=== PATIENT | female | born 1965 | race Caucasian/White ===

== ENCOUNTER 2020-04-27 23:25 | Emergency (ER) | payer OTHER ==
[2020-04-27 23:49] VITALS: BMI 30.9
[2020-04-28] MEDS ORDERED: SODIUM CHLORIDE 1,000 ML IV STA (00:25)
[2020-04-28] MEDS ORDERED: ACETAMINOPHEN 1000 MG/100 ML VIAL (NON FORMULARY) IVPB ONE (00:25)
[2020-04-28 00:54] LABS: BASO % 0.3 % (0-2.0); EOS % 0.5 % (0-4.5); HEMATOCRIT 41.6 % (32.4-45.2); HEMOGLOBIN 13.5 GM/dL (10.7-15.3); LYMPH % 23.4 % (8-40); MCH 26.3 pg (25.7-33.7); MCHC 32.4 g/dl (32.0-36.0); MEAN CELL VOLUME 81.2 fl (80-96); MEAN PLT VOLUME 8.8 fl (7.5-11.1); NEUT % 62.8 % (42.8-82.8); PLATELET COUNT 190 K/MM3 (134-434); RBC 5.12 M/mm3 (3.60-5.2)
[2020-04-28 00:55] VITALS: TEMP 98.8
[2020-04-28] MEDS ORDERED: ACETAMINOPHEN INJECTION 100 ML IVPB ONE (01:08)
[2020-04-28 01:12] LABS: INR 1.13 (0.83-1.09); PROTHROMBIN TIME (PATIENT) 13.9 SEC (9.7-13.0)
[2020-04-28 01:14] LABS: CHLORIDE 109 mmol/L (98-107); POTASSIUM 3.7 mmol/L (3.5-5.1); SODIUM 144 mmol/L (136-145)
[2020-04-28 01:15] LABS: ACTIVATED PTT 27.1 SECONDS (25.2-36.5)
[2020-04-28 01:17] LABS: ALBUMIN 3.1 g/dl (3.4-5.0); ANION GAP 6 MMOL/L (8-16); BLOOD UREA NITROGEN 11.8 mg/dL (7-18); CO2 29 mmol/L (21-32); GLUCOSE,RANDOM 92 mg/dL (74-106); MAGNESIUM 2.2 mg/dL (1.8-2.4)
[2020-04-28 01:18] LABS: LIPASE 178 U/L (73-393)
[2020-04-28 01:20] LABS: CREATININE 0.7 mg/dL (0.55-1.3); SGOT/AST 29 U/L (15-37); SGPT/ALT 29 U/L (13-61)
[2020-04-28 01:21] LABS: BILIRUBIN,TOTAL 0.4 mg/dL (0.2-1); LDH 283 U/L (84-246); TOT PROT 6.6 g/dl (6.4-8.2)
[2020-04-28 01:22] LABS: ALK PHOS 69 U/L (45-117)
[2020-04-28 01:34] LABS: PH,URINE 5.5 (5.0-8.0); URINE APPEARANCE CLOUDY; URINE BILIRUBIN NEGATIVE (NEGATIVE); URINE COLOR YELLOW; URINE GLUCOSE (UA) NEGATIVE (NEGATIVE); URINE KETONE 2+ (NEGATIVE); URINE LEUK ESTERASE NEGATIVE (NEGATIVE); URINE NITRITE NEGATIVE (NEGATIVE); URINE PROTEIN NEGATIVE (NEGATIVE); URINE UROBILINOGEN 0.2 mg/dL (0.2-1.0)
[2020-04-28 04:58] VITALS: BP 143/74; PULSE 70
== END 2020-04-28 05:00 | disposition home or self-care (01) ==
LOC: JER 23:25
PROC: 3E0333Z Introduction of Anti-inflammatory into Peripheral Vein, Percutaneous Approach (ICD-10-PCS; principal; 2020-04-27)
PROC: 3E0337Z Introduction of Electrolytic and Water Balance Substance into Peripheral Vein, Percutaneous Approach (ICD-10-PCS; 2020-04-27)
DX: U07.1 COVID-19 (principal)
CPT/HCPCS: 36415; 71275-TC; 80053; 81003; 82550; 82728; 83605; 83615; 83690; 83735; 84100; 84484; 85025; 85379; 85610; 85730; 86140; 87040; 87086; 93005; 93010; 99285-25; C9803; J0131; U0003